=== PATIENT | female | born 1990 | race Caucasian/White ===

== ENCOUNTER 2016-08-03 18:38 | Emergency (ER) | payer BC ==
[2016-08-03] MEDS ORDERED: SODIUM CHLORIDE 0.9% 1,000 ML ONE (19:34)
[2016-08-03] MEDS ORDERED: DILAUDID 1 MG/ML AMP ONE (19:34)
[2016-08-03] MEDS ORDERED: ONDANSETRON 4 MG VIAL ONE ×2 (19:35→23:11)
[2016-08-04] MEDS ORDERED: KETOROLAC 30 MG/ML VIAL ONE (01:19)
[2016-08-04] MEDS ORDERED: SODIUM CHLORIDE 0.9% 1,000 ML ONE (03:50)
== END 2016-08-04 04:58 | disposition home or self-care (01) ==
LOC: ER 18:38
DX: R10.2 Pelvic and perineal pain (principal)
CPT/HCPCS: 36415; 74176; 76856; 80053; 81001; 83690; 84703; 85025; 87491; 87591; 87800; 96361; 96374; 96375; 96376